=== PATIENT | female | born 1955 | race Caucasian/White ===

== ENCOUNTER 2025-02-15 09:46 | Outpatient (CLI) | payer MEDICAID ==
--- NOTE | 2025-02-15 12:44 | RADIOLOGY REPORT ---
TRANSABDOMINAL PELVIC ULTRASOUND CLINICAL HISTORY: PELVIC PAIN TECHNIQUE: Multiple grayscale ultrasound images were obtained of the pelvis via transabdominal approa ch. Limited color Doppler and spectral Doppler acquisitions were also obtained. COMPARISON: None FINDINGS: Uterus: 5.8 x 2.1 x 4.1 cm. The uterine contour is smooth. No definite myometrial masses are seen. Right adnexa: right ovary not visualized. No right adnexal mass seen. Left adnexa: left ovary not visualized. No left adnexal mass seen. Other: None IMPRESSION: Atrophic uterus. No definite abnormality. The ovaries are not visualized
== END 2025-02-15 23:59 | disposition home or self-care (01) ==
LOC: RAD 09:46
PROVIDERS: ATTEND Nurse Practitioner Family
DX: N85.8 Other specified noninflammatory disorders of uterus (principal); R10.2 Pelvic and perineal pain
CPT/HCPCS: 76856